=== PATIENT | male | born 1960 | race Caucasian/White ===

== ENCOUNTER 2016-09-20 07:34 | Inpatient (IN) | payer MEDICAID ==
[~2016-09-20] VITALS: Ht 170.2 cm; Wt 63.5 kg
[2016-09-20] MEDS ORDERED: SODIUM CHLORIDE FLUSH 10 ML SYR IV PRN (07:50)
[2016-09-20] MEDS ORDERED: ONDANSETRON 2 MG/ML (Z0FRAN) 2 ML VIAL IV ONE (07:50)
[2016-09-20] MEDS ORDERED: SODIUM CHLORIDE FLUSH 3 ML SYR IV PRN (07:50)
[2016-09-20] MEDS ORDERED: SODIUM CHLORIDE 250 ML IV PRN (07:50)
[2016-09-20] MEDS ORDERED: ALBUTEROL/IPRATROPIUM 3MG-0.5MG/3ML (DUONEB) NEB VIAL INH ONE (08:00)
--- NOTE | 2016-09-20 08:12 | NUR ---
This nurse called Anival at [facility]. Nurse stated no change in insulin and that pt is very brittle and goes up and down very easily. Nurse also stated that pt most likely did not have a CT when pt was at the hospital for the fall on the , but will call if she finds out otherwise.
[2016-09-20 08:20] LABS: MEAN CORPUSCULAR HGB CONC 35.4 g/dL (31.0-37.0); MEAN CORPUSCULAR VOLUME 91 FL (80-100); MEAN PLATELET VOLUME 10.2 FL (6.0-9.5); PLATELET COUNT 165 10^3uL (150-450); WHITE BLOOD COUNT 28.28 10^3uL (4.0-11.0)
[2016-09-20 08:39] LABS: MEAN CORPUSCULAR HEMOGLOBIN 32.2 PG (26.0-34.0)
[2016-09-20 09:16] LABS: ALBUMIN 3.9 g/dL (3.4-5.0); ALKALINE PHOSPHATASE 142 U/L (38-126); ANION GAP 19.3 MEQ/L (3-15); BUN/CREATININE RATIO 23 (10-20); CALCULATED IONIZED CALCIUM 3.9 mg/dL (3.8-4.6); CREATINE KINASE 29 U/L (55-170); LIPASE* 53 U/L (23-300); MAGNESIUM* 3.1 mg/dL (1.6-2.3); TOTAL PROTEIN 7.7 g/dL (6.4-8.5)
--- NOTE | 2016-09-20 09:18 | NUR ---
COYNE DRAINS 300CC IMMED & WHILE PT WAS BEING CLEANED UP & GOWNED, FOUND COYNE TO HAVE 1800 CC TOTAL IN IT BAG. DR KRISHNA NOTIFIED. CL
--- NOTE | 2016-09-20 09:19 | NUR ---
This nurse called Anival at , nurse states that pt was acting out of the norm this morning. Usually pt is quiet, but clear, aware, and forms sentences. This morning pt would be normal, then be more lethargic and unclear.
--- NOTE | 2016-09-20 09:30 | NUR ---
PT TEMP RECHK & FOUND TO BE 100.7 TYMP. PT SHAKING/CHILLING. CL
[2016-09-20 10:09] LABS: BAND NEUTROPHILS % 4 % (0-6); EOSINOPHILS % 0 % (0-4); MONOCYTES # 2.2 #; MONOCYTES % 8 % (3-11); SEGMENTED NEUTROPHILS % 81 % (51-67); TOTAL CELLS COUNTED 100
[2016-09-20 10:10] LABS: RBC MORPH NORMAL (NORMAL)
--- NOTE | 2016-09-20 10:18 | NUR ---
O2 SAT GOES TO 89% OFF AND ON AT 5L/NC. DR KRISHNA NOTIFIED & STATES TO LEAVE O2 UNLESS IT DROPS FURTHER FOR LONGER PERIOD. CL
--- NOTE | 2016-09-20 10:20 | NUR ---
PT ASLEEP & MOANS BUT DOES NOT AWAKEN TO SPEECH OR SHAKING. DR KRISHNA NOTIFIED & BLD GLUCOSE RECHK 101. CL
[2016-09-20] MEDS ORDERED: CALCIUM GLUCONATE 1,000 MG in D5W (IVPB) 50 ML IV ONE (10:35)
[2016-09-20] MEDS ORDERED: CLINDAMYCIN INJ 600 MG in SODIUM CHLORIDE 50 ML IV ONE (10:35)
--- NOTE | 2016-09-20 10:44 | NUR ---
PT AWAKE WITH EYES OPEN. NO FURTHER SHIVERING/SHAKING NOTED. CL
--- NOTE | 2016-09-20 10:50 | NUR ---
PT TEMP RECHK IS 103.[address] KRISHNA NOTIFIED. CL
[2016-09-20 10:52] LABS: BILIRUBIN,URINE Negative (Negative); COLOR,URINE Yellow; GLUCOSE, URINE (UA) Negative (Negative); LEUKOCYTE ESTERASE ,URINE 2+ (Negative); PH,URINE 5.5 (5.0 - 8.0); UROBILINOGEN,URINE 0.2 mg/dL (0.2-1.0)
--- NOTE | 2016-09-20 11:00 | NUR ---
DR KRISHNA TEXTS DR KUMARI RE PT. CL
[2016-09-20 11:10] LABS: CLARITY,URINE Slightly Cloudy
--- NOTE | 2016-09-20 11:14 | NUR ---
PT AROUSES & OPENS EYES & LOOKS AROUND, SIGHS & RETURNS TO SLEEP. CL
[2016-09-20 11:20] LABS: RBC,URINE 50-100 /HPF; URINE CENTRIFUGED VOLUME 12 mL
--- NOTE | 2016-09-20 11:21 | NUR ---
DR KRISHNA TALKS W/DR KUMARI. CL
--- NOTE | 2016-09-20 11:22 | NUR ---
DORETHA UNCLAMPEED. DR KRISHNA NOTIFIED. CL
--- NOTE | 2016-09-20 12:40 | NUR ---
DR KRISHNA WAITING ON CT REPORT. PT ASLEEP. CL
--- NOTE | 2016-09-20 13:21 | NUR ---
TEMP RECHCK IS 102.1. CL
--- NOTE | 2016-09-20 13:26 | NUR ---
PTS SISTER RETURNS PREVIOUS CALLS TO HER DPOA. TALKS WITH DR KRISHNA. CL
[2016-09-20] MEDS ORDERED: D5 NS IV 1,000 ML IV SCH (14:00)
--- NOTE | 2016-09-20 14:05 | NUR ---
DR KRISHNA TALKS W/DR KUMARI RE PT. CL
--- NOTE | 2016-09-20 14:05 | NUR ---
Betito granado in [facility] - 09/20/16 at [id number] KRISHNA TALKS W/DR KUMARI RE PT. CL
--- NOTE | 2016-09-20 14:15 | NUR ---
DORETHA EMPTIED OF 750CC AGAIN. LG AMT OF SEDIMENT CONT TO BE NOTED. CL
--- NOTE | 2016-09-20 14:20 | NUR ---
[facility] ([facility]) CALLED TO GIVE REPORT ON PT ADMIT STATUS. PH CALL TO DPOA (SISTER CARLOS ENRIQUE) & MSG LEFT TO RETURN CALL TO THIS ER. CL
[2016-09-20 15:00] VITALS: BP 102/55
--- NOTE | 2016-09-20 15:00 | NUR ---
Patient arrives to room 301 via ED cart. Unresponsive to verbal or physical stimuli. PERRLA. Respirations even and labored on 3L of 02. Vital signs upon arrival, T- 98.6, P- 98 bpm, R- 30, BP- 102/55, 02- 92% on 3L. Accucheck = 152. Patton catheter intact and draining purulent yellow urine. See admission for full assessment.
--- NOTE | 2016-09-20 15:35 | NUR ---
Dr. Johnston here to see patient.
[2016-09-20 15:54] LABS: ALBUMIN 3.4 g/dL (3.4-5.0); ANION GAP 16.6 MEQ/L (3-15); MAGNESIUM* 2.8 mg/dL (1.6-2.3); PHOSPHORUS 6.4 mg/dL (2.4-4.9)
[2016-09-20 16:00] VITALS: BP 102/55
[2016-09-20] MEDS ORDERED: ONDANSETRON 2 MG/ML (Z0FRAN) 2 ML VIAL IV PRN (16:05)
[2016-09-20] MEDS ORDERED: LEVOFLOXACIN 750 MG/150 ML IV 150 ML IV ONE (16:05)
[2016-09-20] MEDS ORDERED: SODIUM POLYSTERENE SULF SUSP 15 GM/60 ML (KAYEXALATE) BTL PR ONE (16:05)
--- NOTE | 2016-09-20 16:15 | NUR ---
MED REC COMPLETE--current med list obtained from [facility] ([facility]).
--- NOTE | 2016-09-20 16:32 | NUR ---
Kayexalate 30gm given NM. Patient remains unresponsive. Will continue to monitor.
[2016-09-20] MEDS ORDERED: NS FLUSH 10 ML PRN IV (16:35)
[2016-09-20] MEDS ORDERED: NS FLUSH 3 ML PRN IV (16:35)
[2016-09-20 17:33] VITALS: BP 108/62
[2016-09-20] MEDS: CLINDAMYCIN INJ 600 MG in SODIUM CHLORIDE 50 ML IV SCH ×2 (18:24→23:57)
--- NOTE | 2016-09-20 18:33 | NUR ---
Patient eyes open. Does not respond to verbal stimuli, however. No apparent signs of pain or distress. IV antibiotic infusing without difficulty. Telemetry reflecting NSR at times sinus tach at a rate of 98 bpm. Temp currently 101 temporally. No results from Kayexalate thus far. Will continue to monitor.
[2016-09-20 19:56] VITALS: BP 130/67
[2016-09-20] MEDS: ACETAMINOPHEN 650 MG SUPP (TYLENOL) PR PRN (20:10)
--- NOTE | 2016-09-20 20:10 | NUR ---
Tylenol 650 mg FL placed for oral temp of 101.7. Pt. opens eyes slightly; moves hands. Pt. repositioned for comfort; pillows placed appropriately. O2 at 3L via NC; Ns infusing at 100 cc/hr without difficulty; tabs attached for safety. Pt.'s room is located close to nurse's station for frequent observation. Addendum: 09/20/16 at 2013 by Emilee Smallwood RN Correction: NS is currently infusing at 125 cc/hr; not 100.
--- NOTE | 2016-09-20 21:10 | NUR ---
Accucheck of [address] Johnston. New order: give Humalog 10 units now; initiate sliding scale insulin.
[2016-09-20] MEDS ORDERED: INSULIN LISPRO 1 UNIT/0.01 ML (HUMALOG) DOSE SC ONE (21:30)
--- NOTE | 2016-09-20 21:30 | NUR ---
Humalog 10 units given per order from Dr. Johnston.
[2016-09-20] MEDS ORDERED: GLUCAGON EMERGENCY 1 MG/KIT IM PRN (21:55)
[2016-09-20] MEDS ORDERED: DEXTROSE 50% 25 GM/50 ML SYRINGE IV PRN (21:55)
[2016-09-20] MEDS ORDERED: DEXTROSE ORAL GEL (GLUTOSE 40%) 15 GM TUBE PO PRN (21:55)
--- NOTE | 2016-09-20 22:53 | NUR ---
Accucheck 133. Pt. is becoming more responsive; opens eyes; attempts to communicate. Patton to gravity; IVF infusing at 125 cc/hr; O2 at 3L via NC. Tabs attached for safety. NPO status observed.
[2016-09-20 23:45] LABS: ANION GAP 13.6 MEQ/L (3-15)
[2016-09-21] VITALS (18 sets, daily range): BP systolic 80–120; BP diastolic 38–61
[2016-09-21] MEDS: ACETAMINOPHEN 650 MG SUPP (TYLENOL) PR PRN ×2 (01:54→07:34)
--- NOTE | 2016-09-21 01:55 | NUR ---
Tylenol 650 mg LA for temp of 101.5. Pt. very warm/hot to the touch. Pt. cleaned and changed of scant bowel movement/ortiz in coloration. Pt. opens eyes; moves arms/hands; attempts to verbalize needs. NPO status remains; alonso to gravity with urine cloudy/yellow. Lower leg extremity edema noted. O2 at 3L via NC; resp varies from normal to slightly labored. Telemetry reflects sinus rhythm to sinus tach. Tabs and bed alarm on for safety.
--- NOTE | 2016-09-21 04:10 | NUR ---
O2 turned to 3.5L; SATS were staying between 88-89% with recent check at 3L. SATS now reflecting 92%. Pt. resting quietly; tabs and bed alarm on for safety.
--- NOTE | 2016-09-21 04:55 | NUR ---
Pt. changed and repositioned; incontinent stool; medium amount; ortiz/gold in coloration.
[2016-09-21] MEDS: CLINDAMYCIN INJ 600 MG in SODIUM CHLORIDE 50 ML IV SCH ×3 (05:30→17:36)
--- NOTE | 2016-09-21 06:01 | NUR ---
Accucheck is 135 this morning; sliding scale insulin not required. Telemetry reflects sinus tach to sinus rhythm. O2 remains at 3.5 L; NPO status. Bed and tabs alarm applied; pt.'s room is within close proximity to nurse's station for frequent evaluation.
[2016-09-21] MEDS: INSULIN LISPRO 1 UNIT/0.01 ML (HUMALOG) DOSE SC SCH ×4 (06:05→20:55)
[2016-09-21 06:31] LABS: MEAN CORPUSCULAR HGB CONC 34.1 g/dL (31.0-37.0); MEAN CORPUSCULAR VOLUME 94 FL (80-100); MEAN PLATELET VOLUME 10.7 FL (6.0-9.5); PLATELET COUNT 108 10^3uL (150-450); WHITE BLOOD COUNT 24.05 10^3uL (4.0-11.0)
[2016-09-21 06:39] LABS: MEAN CORPUSCULAR HEMOGLOBIN 32.1 PG (26.0-34.0)
[2016-09-21 07:02] LABS: ALBUMIN 2.9 g/dL (3.4-5.0); TOTAL PROTEIN 6.1 g/dL (6.4-8.5)
[2016-09-21 08:19] LABS: BAND NEUTROPHILS % 17 % (0-6); EOSINOPHILS % 0 % (0-4); LYMPHOCYTES # 1.2 #; MONOCYTES # 1.9 #; MONOCYTES % 8 % (3-11); SEGMENTED NEUTROPHILS % 70 % (51-67); TOTAL CELLS COUNTED 100
[2016-09-21 08:20] LABS: ANISOCYTOSIS SLIGHT; POLYCHROMASIA SLIGHT; RBC MORPH SEE REFERENCE (NORMAL); TOXIC GRANULATION/VACUOLAZATIO SLIGHT
[2016-09-21] MEDS ORDERED: NS FLUSH 3 ML DAILY IV SCH (09:00)
--- NOTE | 2016-09-21 11:50 | NUR ---
Manual blood pressure in right arm = 95/43. Dr. Johnston notified. New order received to initiate NS@100ml/hour and reassess BP. Patient remains unresponsive to verbal and physical stimuli. Will continue to monitor.
[2016-09-21] MEDS: ENOXAPARIN 80 MG/0.8 ML (LOVENOX) SYR SC SCH ×2 (12:55→20:55)
--- NOTE | 2016-09-21 12:56 | NUR ---
Blood pressure recovers to 102/53.
--- NOTE | 2016-09-21 13:25 | NUR ---
Nurse in room hanging IV medication. Dr. Johnston enters and reports patient just had 9 beat run of V-tach. Vital signs obtained, T- 98.0, P- 100, R- 22, BP- 93/52, 02-94% on 3L of . Patient awake and alert. Denies chest pain at this time. Will continue to monitor. Addendum: 09/21/16 at 1350 by Padmini Mahoney RN Patient had 9 beat run of SVT not V-tach.
--- NOTE | 2016-09-21 13:30 | NUR ---
Short run of SVT rate 150s - strip printed and taken to RN for room 301 - as entering this note another episode of SVT in 150s - last less than 1 minute
--- NOTE | 2016-09-21 13:32 | NUR ---
Lopressor 5mg IVP administered at this time. BP prior to administration = 97/50. Patient now reporting medial chest pain.
[2016-09-21] MEDS ORDERED: meTOprolol 5 MG/5 ML (LOPRESSOR) VIAL IV ONE (13:35)
--- NOTE | 2016-09-21 13:37 | NUR ---
BP following Lopressor = 104/46. Will continue to monitor closely.
[2016-09-21] MEDS ORDERED: FOSPHENYTOIN IV SCH (14:00)
[2016-09-21] MEDS ORDERED: SODIUM CHLORIDE IV SCH (14:00)
[2016-09-21] MEDS ORDERED: LORazepam 2 MG/ML (ATIVAN) 1 ML VIAL IV PRN (14:10)
[2016-09-21] MEDS ORDERED: LEVOFLOXACIN 750 MG/150 ML IV 150 ML IV SCH (16:00)
--- NOTE | 2016-09-21 16:49 | NUR ---
Dr. Johnston notified that current BP = 75/44. Orders to increase IVF to 150ml/hour. Patient awake and alert. Denies pain. Will continue to monitor.
--- NOTE | 2016-09-21 17:41 | NUR ---
BP recovers to 106/51. Dr. Johnston orders to decrease IVF rate to 125ml/hour.
--- NOTE | 2016-09-21 18:10 | NUR ---
Patient awake and alert in bed. Fidgets with oxygen, telemetry, and gown throughout day. Oxygen titrated to 1L after removing oxygen and saturation 91% on roomair. BP at this time = 102/65. IV antibiotic infusing without difficulty. Telemetry reflecting NSR. Denies chest pain or distress. Patton catheter continues to drain yellow urine with large amount of sediment. Seizure precautions in place. Will continue to monitor.
--- NOTE | 2016-09-21 19:05 | NUR ---
Called by PATRICK Gibbons that pt has 14 second run of SVT. Pt assessed; lying in bed. Oxygen replaced. Vital signs as follows: BP 98/58, HR 97, Temp 99.4, o2 sat 89% on 1L. Increased oxygen up to 2L; pt recovers to 94%. Dr Johnston notified.
--- NOTE | 2016-09-21 19:12 | NUR ---
Turned pt's fluids down to 100 ml/hr per Dr Johnston order.
--- NOTE | 2016-09-21 21:13 | NUR ---
Edwige RN, notifies this nurse that pt is back in SVT. PT immediately assessed. BP 85/51. Ice applied to forehead and neck. Dr Johnston on floor; states will transfer pt to ICU.
--- NOTE | 2016-09-21 21:25 | NUR ---
PATIENT ARRIVED TO ROOM 343 VIA BED, TRANSFERRED TO BED IN ROOM VIA SLIDE BOARD AND ASSIST OF 4. RECEIVED BEDSIDE REPORT FROM PATRICK ANN. BEDSIDE MONITORING INITIATED AND ASSESSMENT COMPLETED. DR. KUMARI AT BEDSIDE, ORDERED RECEIVED.
--- NOTE | 2016-09-21 21:30 | NUR ---
Pt transferred to ICU. PATRICK Gibbons is given report and accepts care of pt.
[2016-09-21] MEDS ORDERED: AMIODARONE FOR BOLUS 150 MG in D5W (IVPB) 100 ML IV ONE (21:35)
[2016-09-21] MEDS ORDERED: AMIODARONE FOR BOLUS 900 MG in D5W IV (EXCEL) 482 ML IV SCH (21:35)
[2016-09-21] MEDS ORDERED: AMIODARONE 150 MG/3 ML (CORDARONE) AMP IV ONE (21:40)
[2016-09-21] MEDS ORDERED: DEXTROSE ORAL GEL (GLUTOSE 40%) 15 GM TUBE PO PRN (21:40)
[2016-09-21] MEDS ORDERED: D5W IV ONE ×2 (21:41→21:42)
[2016-09-21] MEDS ORDERED: DEXTROSE 50% 25 GM/50 ML SYRINGE IV PRN (21:55)
[2016-09-21] MEDS ORDERED: GLUCAGON EMERGENCY 1 MG/KIT IM PRN (21:55)
[2016-09-21] MEDS ORDERED: ONDANSETRON 2 MG/ML (Z0FRAN) 2 ML VIAL IV PRN (22:05)
[2016-09-21] MEDS ORDERED: LORazepam 2 MG/ML (ATIVAN) 1 ML VIAL IV ONE (23:50)
[2016-09-21] MEDS ORDERED: SODIUM CHLORIDE FLUSH 10 ML ONE (23:51)
[2016-09-22] VITALS (16 sets, daily range): BP systolic 97–147; BP diastolic 54–82
[2016-09-22] MEDS ORDERED: ACETAMINOPHEN 650 MG SUPP (TYLENOL) PR PRN (00:05)
[2016-09-22] MEDS ORDERED: CLINDAMYCIN 600 MG/4ML (CLEOCIN) VIAL ONE (01:21)
[2016-09-22] MEDS ORDERED: SODIUM CHLORIDE 100 ML IV ONE (01:21)
[2016-09-22] MEDS ORDERED: NS 50 ML (IVPB) BAG IV PRN (01:25)
[2016-09-22] MEDS: CLINDAMYCIN INJ 600 MG in SODIUM CHLORIDE 50 ML IV SCH ×5 (01:26→23:52)
[2016-09-22 06:00] LABS: BASOPHILS % (AUTO) 0 % (0-2); EOSINOPHILS # (AUTO) 0.1 10^3uL; EOSINOPHILS % (AUTO) 1 % (0-4); MEAN CORPUSCULAR HGB CONC 33.1 g/dL (31.0-37.0); MEAN CORPUSCULAR VOLUME 96 FL (80-100); MEAN PLATELET VOLUME 10.6 FL (6.0-9.5); MONOCYTES % (AUTO) 8 % (3-11); NEUTROPHILS # (AUTO) 11.1 X10^3; NEUTROPHILS % (AUTO) 84 % (51-67); PLATELET COUNT 122 10^3uL (150-450); WHITE BLOOD COUNT 13.16 10^3uL (4.0-11.0)
[2016-09-22 06:11] LABS: ALBUMIN 2.8 g/dL (3.4-5.0); ANION GAP 16.6 MEQ/L (3-15); MAGNESIUM* 2.2 mg/dL (1.6-2.3); PHOSPHORUS 2.6 mg/dL (2.4-4.9)
[2016-09-22 06:13] LABS: MEAN CORPUSCULAR HEMOGLOBIN 31.8 PG (26.0-34.0)
--- NOTE | 2016-09-22 07:48 | NUR ---
NUTRITION ASSESSMENT Level 1 Patient: Harsh Machado Age/Sex: 56/M Date Screened: 09-22-16 Weight: 142.1#/64.6 kg Height: 67 inches Primary Diagnosis: SIRS/sepsis Diet Order: NPO Relevant labs: sodium 154, potassium 3.3, glucose 250 Food allergies: N Nutrition Assessment Criteria Age over 80: N Body Mass Index (BMI) under 19: N Admission Screening Indicates Risk? 3 points Moderate/High Risk Diagnosis: 3 points TPN or PPN: N NPO or clear liquid diet: Yes Serum Glucose <70 or >180: 3 points Hgb A1c >6.7: N/A Total: 9 points Risk Screen: __ Patient at low nutritional risk based on available data; reevaluate in 5-7 days __ Patient at moderate nutritional risk based on available data; reevaluate in 3-5 days _X_ Patient at high nutritional risk; complete Nutrition Assessment within 48 hours of admission.
[2016-09-22] MEDS: INSULIN LISPRO 1 UNIT/0.01 ML (HUMALOG) DOSE SC SCH ×4 (08:22→21:00)
[2016-09-22] MEDS ORDERED: traZODone 50 MG (DESYREL) TABLET PO PRN (08:35)
[2016-09-22] MEDS ORDERED: ALBUTEROL/IPRATROPIUM 3MG-0.5MG/3ML (DUONEB) NEB VIAL INH PRN (08:55)
[2016-09-22] MEDS ORDERED: PANTOPRAZOLE 40 MG (PROTONIX) TAB PO SCH (09:00)
[2016-09-22] MEDS ORDERED: ALBUTEROL HFA (VENTOLIN HFA) COMMON CANNISTER IH SCH ×2 (09:00)
[2016-09-22] MEDS ORDERED: ENOXAPARIN 80 MG/0.8 ML (LOVENOX) SYR SC SCH ×2 (09:00→21:00)
[2016-09-22] MEDS ORDERED: SODIUM CHLORIDE FLUSH 3 ML SYR IV SCH (09:00)
[2016-09-22] MEDS ORDERED: RIVAROXABAN 10 MG (XARELTO) TABLET PO SCH (09:00)
[2016-09-22] MEDS ORDERED: POLYETHYLENE GLYCOL 17 GM (MIRALAX) PACKET PO SCH (09:00)
[2016-09-22] MEDS ORDERED: THIAMINE 100 MG (VITAMIN B-1) TAB PO SCH (09:00)
[2016-09-22] MEDS ORDERED: POTASSIUM CHLORIDE ER 10 MEQ CAPSULE PO SCH (09:00)
[2016-09-22] MEDS ORDERED: SODIUM CHLORIDE IV SCH ×2 (09:00)
[2016-09-22] MEDS ORDERED: FINASTERIDE (PROSCAR) 5 MG TAB PO SCH (09:00)
[2016-09-22] MEDS ORDERED: FOSPHENYTOIN IV SCH ×2 (09:00)
[2016-09-22] MEDS ORDERED: lisINopril 20 MG (PRINIVIL) TABLET PO SCH (09:00)
[2016-09-22] MEDS ORDERED: TAMSULOSIN 0.4 MG (FLOMAX) CAP PO SCH (09:00)
[2016-09-22] MEDS ORDERED: MULTIVITAMIN W/MINERALS (THERAGRAN M) TABLET PO SCH (09:18)
[2016-09-22] MEDS: DOCUSATE SODIUM 100 MG (COLACE) CAP PO SCH ×2 (09:32→20:07)
[2016-09-22] MEDS: MAGNESIUM HYDROXIDE 80MG/ML (MILK OF MAGNESIA) 30 ML UDC PO SCH ×3 (09:32→17:00)
--- NOTE | 2016-09-22 14:07 | NUR ---
NUTRITION ASSESSMENT Level II Patient: Harsh Machado Age/Sex: 56/M Date Assessed: 09-22-16 ASSESSMENT Pertinent History: Patient admitted with SIRS/sepsis and screened at high nutritional risk secondary to diagnosis and poor appetite/intake with aspiration pneumonia. 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 PMHx includes diabetes, HTN, GERD, BPH, COPD, epilepsy, CKD and CVA with left sided weakness. No weight history is available. Per RN report, pt. has mild skin breakdown on coccyx. Meds/Nutrition: Levemir, MVI, Protonix, Thiamine, KCl, Humalog Weight: 142.1#/64.6 kg Height: 67 inches Body Mass Index (BMI): 22.3 [place] Body Weight : 148#/67.2 kg % IBW: 96% GASTROINTESTINAL Appetite: good, taking 75% FL Diet Order: mechanical soft, NT liquids, medium diabetic Unintentional loss of >10 lbs. in 3 months: N Difficult to chew/swallow: Yes Diabetes: Yes Relevant Labs: sodium 154, potassium 3.3, glucose 250 Calculations for Nutritional Assessment Estimated calorie needs: 25-28 kcals/kg = 1,600-1,800 kcals Estimated protein needs: 1.0-1.3 g/kg = 64-83 g./day DIAGNOSIS 1. Nutrition Diagnosis: Inadequate intake related to illness and dysphagia as evidenced by aspiration pneumonia and speech therapist reports. NUTRITIONAL INTERVENTION Goal: Patient will receive adequate nutrition within an appropriate texture for his safety. Plan: Will provide mechanical soft diet with nectar-thick liquids and medium diabetic diet as ordered, and monitor intake for adequacy. Plan is to DC back to [facility] when clinically stable. MONITORING & EVALUATION _X_ Monitor patients menu selections _X_ Monitor patients food intake per nursing notes __ Monitor NPO/clear liquid days __ Monitor lab values __ Monitor I&O _X_ Other--monitor swallow ability and skin breakdown
[2016-09-22] MEDS ORDERED: LORazepam 2 MG/ML (ATIVAN) 1 ML VIAL IV PRN (14:10)
--- NOTE | 2016-09-22 14:17 | NUR ---
MULTIDISCIPLINARY MTG/DR. HERMAN: Pt. admitted for altered mental status, Sepsis and pneumonia with concern for aspiration. Pt. had SVT last night and was started on amiodarone. This will finish today. Pt. is breathing okay and is on room air. Pt. receiving albuterol BID. Pt. on levofloxacin and clindamycin. Pt. started on a bowel regimen for constipation. ST evaluated Pt and recommends mechanical soft foods and nectar thick liquids. Pt. will be restarted on oral medications today. Pt. is a resident of [facility] and stated Pt. would like to get back to [place] and is waiting for a room to become available at [facility]. [facility] is able to take Pt. back if his room is not available at time of discharge.
--- NOTE | 2016-09-22 14:22 | NUR ---
Patient is found this AM with Amiodarone drip infusing into RFA and Cleocin into Lhand. The patient is drowsy but opens eyes to voice. Appearance is somewhat unkempt and skin is dry and warm. Healed abrasion above left eye. No evidence of pain or distress for Harsh this AM respirations are even and unlabored and vital signs are WNL. Monitor shows sinus rhythm with a heart rate in the 80s. Dr. Geiger in to see Harsh this AM and diet advanced to Full Liquid and PO medications to begin. Harsh coughs intermittently but is able to swallow and toleration medications by mouth. Hygiene completed this AM and the patient is made comfortable in bed. Hair shampooed and skin barrier applied to reddened coccyx area. Harsh cooperates with all cares and is appropriate with interactions. After lunch speech therapy is in to see the patient and diet is advanced to mechanical soft. Currently Harsh is resting in bed under the covers with eyes closed and appears to be in no distress. Will continue to monitor and turn Q2HR
--- NOTE | 2016-09-22 15:33 | NUR ---
US in the room at this time.
[2016-09-22] MEDS: SODIUM CHLORIDE FLUSH 10 ML SYR IV PRN ×2 (15:55→23:52)
[2016-09-22] MEDS ORDERED: LEVOFLOXACIN 750 MG/150 ML IV 150 ML IV SCH (16:00)
[2016-09-22] MEDS ORDERED: LEVOFLOXACIN 500 MG/100 ML IV 100 ML IV SCH (16:00)
--- NOTE | 2016-09-22 16:30 | NUR ---
Patient found with monitors off, no clothes or blankets on and and on to his left side. IV infiltrated. Linens and pull ups changed at this time. Patient is repositioned for comfort. IV in RFA discontinued
[2016-09-22] MEDS ORDERED: SODIUM CHLORIDE FLUSH 3 ML SYR IV PRN (16:35)
--- NOTE | 2016-09-22 17:00 | NUR ---
20 gauge IV started in RFA at this time and amiodarone drip resumes in this site. Previous IV site discontinued due to infiltration
[2016-09-22 17:20] LABS: ALBUMIN 2.7 g/dL (3.4-5.0); ANION GAP 14.6 MEQ/L (3-15)
[2016-09-22] MEDS ORDERED: MAGNESIUM HYDROXIDE 80MG/ML (MILK OF MAGNESIA) 30 ML UDC PO PRN (18:45)
--- NOTE | 2016-09-22 19:00 | NUR ---
Upon taking over care, patient sitting upright in bed, leaning to left with full liquid dinner tray in front of him. Intake 50%. Coughing up thick phlegm, O2 sats 94% on room air. SR 80's.
--- NOTE | 2016-09-22 19:05 | NUR ---
report given to Hannah NGUYEN and care relinquished
--- NOTE | 2016-09-22 20:53 | NUR ---
Oral cares performed, incontinent of BM, cares performed, patient rubbing legs, states "yes" when asked if they hurt. Prn order for Tylenol supp and patient states "no". New order for Tylenol prn po received. Liquids thickened per diet order.
[2016-09-22] MEDS ORDERED: PHENYTOIN ER 100 MG (DILANTIN) CAPSULE PO SCH (21:00)
[2016-09-22] MEDS ORDERED: INSULIN DETEMIR 1 UNIT/0.01 ML (LEVEMIR) DOSE SC SCH (21:00)
[2016-09-22] MEDS ORDERED: ATENOLOL 50 MG (TENORMIN) TAB PO SCH (21:00)
[2016-09-22] MEDS ORDERED: SIMvastatin 40 MG (ZOCOR) TAB PO SCH (21:00)
[2016-09-22] MEDS ORDERED: ACETAMINOPHEN 325 MG TAB (TYLENOL) PO PRN ×2 (21:15→21:20)
--- NOTE | 2016-09-22 21:20 | NUR ---
Prn Trazodone administered per order.
--- NOTE | 2016-09-22 21:28 | NUR ---
Patient continues to fidget in bed, when asked if he still hurts he replied "yes" prn Tylenol administered with bite of sf jello and thickened water. Sitting upright in bed drinking thickened water, with no coughing or choking.
[2016-09-22] MEDS ORDERED: INSULIN LISPRO 1 UNIT/0.01 ML (HUMALOG) DOSE SC SCH (22:10)
[2016-09-23] VITALS: BP 128/61
--- NOTE | 2016-09-23 00:07 | NUR ---
Resting off and on in bed, repeatedly turns to left side of bed and reaches over as looking for something, given thickened water while sitting upright, does not cough with each drink but after, coughs up thick clear phlegm. Continues to pull and tear at tele wires, and brief. reminded where he is and what wires for. repositioned to side with hob down to 15 degree. Continue to monitor
[2016-09-23] MEDS: ALBUTEROL/IPRATROPIUM 3MG-0.5MG/3ML (DUONEB) NEB VIAL INH SCH ×3 (02:35→22:47)
[2016-09-23 04:00] VITALS: BP 111/58
[2016-09-23] MEDS: CLINDAMYCIN INJ 600 MG in SODIUM CHLORIDE 50 ML IV SCH (05:15)
--- NOTE | 2016-09-23 05:35 | NUR ---
Has been awake over past several hours, fidgeting in bed with wires, ja brief, kleenex, and hands in air. Alert and oriented to person, place and situation. Voice is a whisper, respirations even non labored on room air, when given thickened water, states "this tastes like shit". Continues to drink nectar thick water from cup until all is gone from cup, intermittent coughing and uses Kleenex to spit phlegm into. Patton to dd with odorous, dark yellow with mucous output. Cleocin infusing into left forearm @ 100. Continue to monitor.
[2016-09-23 06:09] LABS: BASOPHILS % (AUTO) 0 % (0-2); EOSINOPHILS # (AUTO) 0.3 10^3uL; EOSINOPHILS % (AUTO) 2 % (0-4); LYMPHOCYTES # (AUTO) 1.6 X10^3; MEAN CORPUSCULAR HGB CONC 33.9 g/dL (31.0-37.0); MEAN CORPUSCULAR VOLUME 94 FL (80-100); MEAN PLATELET VOLUME 10.5 FL (6.0-9.5); MONOCYTES # (AUTO) 0.8 X10^3; MONOCYTES % (AUTO) 7 % (3-11); NEUTROPHILS # (AUTO) 9.6 X10^3; NEUTROPHILS % (AUTO) 77 % (51-67); PLATELET COUNT 134 10^3uL (150-450); WHITE BLOOD COUNT 12.33 10^3uL (4.0-11.0)
[2016-09-23 06:13] LABS: MEAN CORPUSCULAR HEMOGLOBIN 31.8 PG (26.0-34.0)
[2016-09-23 06:36] LABS: ALBUMIN 2.8 g/dL (3.4-5.0); ANION GAP 12.8 MEQ/L (3-15); PHOSPHORUS 1.5 mg/dL (2.4-4.9)
[2016-09-23] MEDS: INSULIN LISPRO 1 UNIT/0.01 ML (HUMALOG) DOSE SC SCH ×7 (06:44→21:08)
--- NOTE | 2016-09-23 07:00 | NUR ---
Report received from Hannah NGUYEN and care assumed.
[2016-09-23 07:40] VITALS: BP 128/89
--- NOTE | 2016-09-23 08:00 | NUR ---
Assessments completed and breakfast tray taken into pt. Pt is not tolerating the thickened liquids very well. Ate poorly for breakfast. Pt has difficulty with swallowing liquids even thickened without coughing. Pt talks only in a whisper. Leans to the left due to CVA. Monitor showing SR in the 80's. Will continue to monitor closely.
[2016-09-23] MEDS ORDERED: DEXTROSE ORAL GEL (GLUTOSE 40%) 15 GM TUBE PO PRN (08:10)
[2016-09-23] MEDS ORDERED: DEXTROSE 50% 25 GM/50 ML SYRINGE IV PRN (08:24)
[2016-09-23] MEDS ORDERED: GLUCAGON EMERGENCY 1 MG/KIT IM PRN (08:26)
[2016-09-23] MEDS ORDERED: ONDANSETRON 2 MG/ML (Z0FRAN) 2 ML VIAL IV PRN (08:27)
[2016-09-23] MEDS ORDERED: NS 50 ML (IVPB) BAG IV PRN (08:29)
[2016-09-23] MEDS ORDERED: SODIUM CHLORIDE FLUSH 10 ML SYR IV PRN (08:29)
[2016-09-23] MEDS ORDERED: POTASSIUM PHOSPHATE 21 MM in SODIUM CHLORIDE 250 ML IV ONE (08:30)
[2016-09-23] MEDS ORDERED: SODIUM CHLORIDE FLUSH 3 ML SYR IV PRN (08:30)
[2016-09-23] MEDS ORDERED: ACETAMINOPHEN 325 MG TAB (TYLENOL) PO PRN ×2 (08:32→09:20)
[2016-09-23] MEDS ORDERED: LORazepam 2 MG/ML (ATIVAN) 1 ML VIAL IV PRN (08:33)
[2016-09-23] MEDS: PANTOPRAZOLE 40 MG (PROTONIX) TAB PO SCH (08:43)
[2016-09-23] MEDS: FINASTERIDE (PROSCAR) 5 MG TAB PO SCH (08:43)
[2016-09-23] MEDS: lisINopril 20 MG (PRINIVIL) TABLET PO SCH (08:44)
[2016-09-23] MEDS: RIVAROXABAN 10 MG (XARELTO) TABLET PO SCH (08:44)
[2016-09-23] MEDS: POTASSIUM CHLORIDE ER 10 MEQ CAPSULE PO SCH (08:45)
[2016-09-23] MEDS: PHENYTOIN ER 100 MG (DILANTIN) CAPSULE PO SCH ×2 (08:45→21:07)
[2016-09-23] MEDS: MULTIVITAMIN W/MINERALS (THERAGRAN M) TABLET PO SCH (08:46)
[2016-09-23] MEDS: DOCUSATE SODIUM 100 MG (COLACE) CAP PO SCH ×2 (08:46→21:07)
[2016-09-23] MEDS: THIAMINE 100 MG (VITAMIN B-1) TAB PO SCH (08:46)
[2016-09-23] MEDS: POLYETHYLENE GLYCOL 17 GM (MIRALAX) PACKET PO SCH (08:48)
[2016-09-23] MEDS: SODIUM CHLORIDE FLUSH 3 ML SYR IV SCH (08:48)
[2016-09-23] MEDS ORDERED: ALBUTEROL HFA (VENTOLIN HFA) COMMON CANNISTER IH SCH (09:00)
[2016-09-23] MEDS ORDERED: MAGNESIUM HYDROXIDE 80MG/ML (MILK OF MAGNESIA) 30 ML UDC PO PRN (09:00)
[2016-09-23] MEDS ORDERED: RIVAROXABAN 10 MG (XARELTO) TABLET PO SCH (09:00)
--- NOTE | 2016-09-23 09:20 | NUR ---
Contacted Pt. insurance company [employer] to inquire about Pt. having a skilled benefit. SW was informed that Pt. does not have a skilled or swingbed benefit.
--- NOTE | 2016-09-23 09:40 | NUR ---
Pt transferred to med-surg per shower chair, after shower pt will be transferred to room 312. Pt is alert but confused at times. Prior to transfer, alonso catheter was dcd. Report was given to Eva NGUYEN and care relinquished.
--- NOTE | 2016-09-23 09:40 | NUR ---
Patient arrives to room 312 via shower chair. Alert and oriented to self only. Denies pain or distress. IV in left forearm with potassium phosphate infusing. IV in right forearm infiltrated with moderate redness noted at insertion site. Discontinued with catheter intact. HR RRR. Telemetry reflecting NSR at a rate of 74 bpm. Lung sounds CTAB. Trace edema noted to BLE. Patient updated on plan of care for shift and oriented to room. TABS and yellow gown intact for safety and high fall risk. Will continue to monitor.
[2016-09-23] MEDS: TAMSULOSIN 0.4 MG (FLOMAX) CAP PO SCH (10:10)
[2016-09-23] MEDS ORDERED: ALBUTEROL/IPRATROPIUM 3MG-0.5MG/3ML (DUONEB) NEB VIAL INH SCH (11:00)
[2016-09-23 11:25] VITALS: BP 132/64
[2016-09-23] MEDS: CLINDAMYCIN 150 MG (CLEOCIN) CAP PO SCH ×2 (13:09→22:16)
[2016-09-23 15:37] VITALS: BP 117/69
--- NOTE | 2016-09-23 15:52 | NUR ---
Patient has not voided since Patton catheter removed. Bladder scan reveals [address] Geiger notified and orders to straight cath now and to bladders scan QID and straight cath if greater than 250ml. Straight cath performed at this time and 150 ml drained from bladder. Will continue to monitor.
[2016-09-23] MEDS: LEVOFLOXACIN 750 MG TAB (LEVAQUIN) PO SCH (16:01)
--- NOTE | 2016-09-23 18:32 | NUR ---
Patient sitting up in bed feeding self supper. Denies pain. Remains alert during day shift. Afebrile. Respirations even and non-labored on roomair. Has not voided since straight cath. Will continue to monitor.
[2016-09-23 19:50] VITALS: BP 118/68
[2016-09-23] MEDS ORDERED: traZODone 50 MG (DESYREL) TABLET PO PRN (21:00)
[2016-09-23] MEDS: INSULIN DETEMIR 1 UNIT/0.01 ML (LEVEMIR) DOSE SC SCH (21:07)
[2016-09-23] MEDS: ATENOLOL 50 MG (TENORMIN) TAB PO SCH (21:07)
[2016-09-23] MEDS: SIMvastatin 40 MG (ZOCOR) TAB PO SCH (21:07)
--- NOTE | 2016-09-23 22:45 | NUR ---
Bladder scan performed, 670mL showed on scan. Straight cath performed, 600mL drained from bladder. Patient tolerates well. No needs at this time.
--- NOTE | 2016-09-23 22:49 | NUR ---
Pt found lying in bed, SPO2 98, HR 74, RR 18, Pt has a loose NPC with coarse rhonchi in bilateral upper lobes before and after Duoneb via SVN/MASK. Pt does not talk or answer questions during my visit.
[2016-09-24 00:13] VITALS: BP 124/69
--- NOTE | 2016-09-24 04:27 | NUR ---
Bladder scan = 600mL. Straight cath performed, 550mL drained from bladder. Patient tolerates well. No needs at this time. Will continue to monitor.
[2016-09-24 04:44] VITALS: BP 141/78
[2016-09-24] MEDS: CLINDAMYCIN 150 MG (CLEOCIN) CAP PO SCH (06:00)
[2016-09-24] MEDS: PANTOPRAZOLE 40 MG (PROTONIX) TAB PO SCH (06:32)
--- NOTE | 2016-09-24 06:33 | NUR ---
Patient rests in bed throughout night, turned frequently during night. Coughs on nectar thickened water that was given. Patient refuses AM Cleocin and AM Protonix, states "You take it" and "I don't want it now." Pushes cup away when offered in applesauce. No further needs at this time.
[2016-09-24] MEDS: INSULIN LISPRO 1 UNIT/0.01 ML (HUMALOG) DOSE SC SCH ×8 (07:09→21:00)
[2016-09-24 08:00] VITALS: BP 134/70
[2016-09-24] MEDS: POLYETHYLENE GLYCOL 17 GM (MIRALAX) PACKET PO SCH (08:24)
[2016-09-24] MEDS: SODIUM CHLORIDE FLUSH 3 ML SYR IV SCH (08:27)
[2016-09-24] MEDS: ALBUTEROL/IPRATROPIUM 3MG-0.5MG/3ML (DUONEB) NEB VIAL INH SCH ×2 (08:54→19:55)
--- NOTE | 2016-09-24 08:57 | NUR ---
Pt is sitting up in bed, appears to be sleepy, tolerated tx well. On room air- SPO2 98%
[2016-09-24] MEDS: TAMSULOSIN 0.4 MG (FLOMAX) CAP PO SCH ×2 (10:00→11:28)
[2016-09-24] MEDS: MULTIVITAMIN W/MINERALS (THERAGRAN M) TABLET PO SCH (10:05)
[2016-09-24] MEDS: DOCUSATE SODIUM 100 MG (COLACE) CAP PO SCH ×3 (10:06→22:40)
[2016-09-24] MEDS: PHENYTOIN ER 100 MG (DILANTIN) CAPSULE PO SCH ×3 (10:06→22:40)
[2016-09-24] MEDS: lisINopril 20 MG (PRINIVIL) TABLET PO SCH ×2 (10:06→11:29)
[2016-09-24] MEDS: THIAMINE 100 MG (VITAMIN B-1) TAB PO SCH (10:06)
[2016-09-24] MEDS: FINASTERIDE (PROSCAR) 5 MG TAB PO SCH ×2 (10:06→11:29)
[2016-09-24] MEDS: RIVAROXABAN 10 MG (XARELTO) TABLET PO SCH ×2 (10:06→11:29)
[2016-09-24] MEDS: POTASSIUM CHLORIDE ER 10 MEQ CAPSULE PO SCH ×2 (10:06→11:29)
--- NOTE | 2016-09-24 10:07 | NUR ---
Pt refused AM meds- This nurse tried 4 different times using different methods to get patient to take medications. Dr. Geiger notified- He gave VORB to try giving meds with thin water. Pt still refused to even try medications.
--- NOTE | 2016-09-24 10:54 | NUR ---
1000 bladder scan= 610ml. Straight cath as ordered= 550ml clear yellow urine. Post cath bladder scan= 128ml
[2016-09-24 11:31] LABS: ALBUMIN 2.8 g/dL (3.4-5.0); ANION GAP 12.6 MEQ/L (3-15); PHOSPHORUS 2.9 mg/dL (2.4-4.9)
[2016-09-24 11:43] VITALS: BP 154/86
--- NOTE | 2016-09-24 11:57 | NUR ---
Dr. Geiger talked to patient regarding importance of taking medications- Pt agreed to take them- Crushed meds that are ok to be crushed with whole pills in applesauce. Taken without difficulty.
--- NOTE | 2016-09-24 13:16 | NUR ---
Pt to Rad for CT via cart.
[2016-09-24] MEDS: CLINDAMYCIN INJ 600 MG in SODIUM CHLORIDE 50 ML IV SCH ×2 (13:44→21:58)
[2016-09-24] MEDS ORDERED: CLINDAMYCIN 600 MG/4ML (CLEOCIN) VIAL IM SCH (14:00)
[2016-09-24] MEDS: LEVOFLOXACIN 750 MG TAB (LEVAQUIN) PO SCH (15:58)
[2016-09-24 16:00] VITALS: BP 92/60
--- NOTE | 2016-09-24 16:35 | NUR ---
1600 bladder scan= 710ml, Pt denies urge to void. Dr. Geiger notified- TORB for Alonso. 16F alonso placed at this time via sterile technique. 10ml saline into balloon. Immediately 700ml clear, yellow urine drained into collection bag. Pt tolerated without c/o. Securement device placed to Left anterior thigh
[2016-09-24 16:47] LABS: BILIRUBIN,URINE Negative (Negative); COLOR,URINE Yellow; GLUCOSE, URINE (UA) 1+ (Negative); LEUKOCYTE ESTERASE, URINE Trace (Negative); PH,URINE 7.5 (5.0 - 8.0)
[2016-09-24 16:50] LABS: CLARITY,URINE Slightly Cloudy
[2016-09-24 16:53] LABS: URINE CENTRIFUGED VOLUME 12 mL
--- NOTE | 2016-09-24 18:17 | NUR ---
Pt sitting up in bed, eating supper tray- feeding self. Tabs alarm in place, bed alarm turned on. Pooja santana DD. Remains on RA. Denies needs at this time.
--- NOTE | 2016-09-24 19:59 | NUR ---
Pt found lying in bed on RA, SPO2 95%, HR 80, RR 15 and non labored with clear BS before and after Duoneb via SVN/MASK.
[2016-09-24 20:51] VITALS: BP 136/72
--- NOTE | 2016-09-24 22:00 | NUR ---
Pt rests in bed. Very soft spoken and hard to understand. Pt refuses to take HS medications. States "she didn't authorize it". Unclear who "she" is. Pt's sister called for update, spoke with this nurse. States to tell him that his sister insists that he takes his meds. Pt continues to refused PO meds. SL intact. Close to nurse's station for frequent monitoring. Pt denies needs.
[2016-09-24] MEDS: INSULIN DETEMIR 1 UNIT/0.01 ML (LEVEMIR) DOSE SC SCH (22:04)
[2016-09-24] MEDS: ATENOLOL 50 MG (TENORMIN) TAB PO SCH (22:40)
[2016-09-24] MEDS: SIMvastatin 40 MG (ZOCOR) TAB PO SCH (22:41)
[2016-09-25 00:28] VITALS: BP 142/75
[2016-09-25] MEDS: INSULIN LISPRO 1 UNIT/0.01 ML (HUMALOG) DOSE SC SCH ×7 (05:38→20:42)
[2016-09-25 05:49] VITALS: BP 114/68
[2016-09-25] MEDS: CLINDAMYCIN INJ 600 MG in SODIUM CHLORIDE 50 ML IV SCH ×3 (06:12→21:21)
[2016-09-25] MEDS: PANTOPRAZOLE 40 MG (PROTONIX) TAB PO SCH (06:18)
--- NOTE | 2016-09-25 06:18 | NUR ---
Pt refused all PO meds this shift. States "I ain't taking shit for you if I don't know what it is", although this nurse explained medication names and indications to patient prior to administration. Explained medications again and pt continued to refuse. Pt pulled telemetry leads off multiple times in the shift, dug in his dirty BM-filled briefs, and did not sleep much. Bed alarm and tabs set. Close to nurse's station for frequent monitoring. Will continue to monitor.
[2016-09-25 06:35] LABS: BASOPHILS % (AUTO) 0 % (0-2); EOSINOPHILS # (AUTO) 0.2 10^3uL; EOSINOPHILS % (AUTO) 2 % (0-4); LYMPHOCYTES # (AUTO) 1.6 X10^3; MEAN CORPUSCULAR HGB CONC 34.2 g/dL (31.0-37.0); MEAN CORPUSCULAR VOLUME 93 FL (80-100); MEAN PLATELET VOLUME 11.1 FL (6.0-9.5); MONOCYTES # (AUTO) 0.7 X10^3; MONOCYTES % (AUTO) 6 % (3-11); NEUTROPHILS # (AUTO) 9.7 X10^3; NEUTROPHILS % (AUTO) 79 % (51-67); PLATELET COUNT 139 10^3uL (150-450); WHITE BLOOD COUNT 12.21 10^3uL (4.0-11.0)
[2016-09-25 06:37] LABS: MEAN CORPUSCULAR HEMOGLOBIN 31.6 PG (26.0-34.0)
--- NOTE | 2016-09-25 07:05 | NUR ---
RFA red - turns self to L side - IV antibiotic infused - line flushed with NS - to SL
[2016-09-25 07:11] LABS: ALBUMIN 2.8 g/dL (3.4-5.0); ANION GAP 11.3 MEQ/L (3-15); PHOSPHORUS 3.4 mg/dL (2.4-4.9)
[2016-09-25] MEDS: SODIUM CHLORIDE FLUSH 3 ML SYR IV SCH (07:28)
[2016-09-25 07:44] VITALS: BP 116/54
[2016-09-25] MEDS: MULTIVITAMIN W/MINERALS (THERAGRAN M) TABLET PO SCH (08:00)
[2016-09-25] MEDS: POTASSIUM CHLORIDE ER 10 MEQ CAPSULE PO SCH (09:00)
[2016-09-25] MEDS: THIAMINE 100 MG (VITAMIN B-1) TAB PO SCH (09:00)
[2016-09-25] MEDS: lisINopril 20 MG (PRINIVIL) TABLET PO SCH (09:00)
[2016-09-25] MEDS: PHENYTOIN ER 100 MG (DILANTIN) CAPSULE PO SCH ×2 (09:00→21:00)
[2016-09-25] MEDS: RIVAROXABAN 10 MG (XARELTO) TABLET PO SCH (09:00)
[2016-09-25] MEDS: POLYETHYLENE GLYCOL 17 GM (MIRALAX) PACKET PO SCH (09:00)
[2016-09-25] MEDS: DOCUSATE SODIUM 100 MG (COLACE) CAP PO SCH ×2 (09:00→21:00)
[2016-09-25] MEDS: FINASTERIDE (PROSCAR) 5 MG TAB PO SCH (09:00)
[2016-09-25] MEDS: ALBUTEROL/IPRATROPIUM 3MG-0.5MG/3ML (DUONEB) NEB VIAL INH SCH ×2 (09:06→19:59)
--- NOTE | 2016-09-25 09:30 | NUR ---
"Leave me alone" - refused po meds
[2016-09-25] MEDS: TAMSULOSIN 0.4 MG (FLOMAX) CAP PO SCH (10:00)
[2016-09-25 12:00] VITALS: BP 141/78
[2016-09-25 15:41] VITALS: BP 135/66
[2016-09-25] MEDS: LEVOFLOXACIN 750 MG TAB (LEVAQUIN) PO SCH (16:00)
--- NOTE | 2016-09-25 17:09 | NUR ---
Pt refused med, pushed this nurses hand away. Offered water if he would take the po med, again hand was pushed away. Pt is pulling at telemetry leads, had to reapply, told pt that it was important to leave them on so we can monitor his heart.
--- NOTE | 2016-09-25 20:03 | NUR ---
Pt found lying in bed on RA, SPO2 100%, HR 84, RR 14 and non labored. BS have diminished rhonchi in bilateral upper lobes, clear and diminished bilat lower lobes before and after Tx. Pt does not cough when I request he try.
--- NOTE | 2016-09-25 20:08 | NUR ---
Pt coughed spontaneously, BS cleared slightly in upper lobes
[2016-09-25 20:15] VITALS: BP 140/67
[2016-09-25] MEDS: SIMvastatin 40 MG (ZOCOR) TAB PO SCH (21:00)
[2016-09-25] MEDS: ATENOLOL 50 MG (TENORMIN) TAB PO SCH (21:00)
[2016-09-25] MEDS: INSULIN DETEMIR 1 UNIT/0.01 ML (LEVEMIR) DOSE SC SCH (21:29)
[2016-09-26 00:07] VITALS: BP 119/65
[2016-09-26 04:25] VITALS: BP 160/86
[2016-09-26] MEDS: PANTOPRAZOLE 40 MG (PROTONIX) TAB PO SCH (06:08)
[2016-09-26] MEDS: INSULIN LISPRO 1 UNIT/0.01 ML (HUMALOG) DOSE SC SCH ×7 (06:15→21:00)
[2016-09-26] MEDS: CLINDAMYCIN INJ 600 MG in SODIUM CHLORIDE 50 ML IV SCH (06:15)
[2016-09-26 08:23] VITALS: BP 163/97
[2016-09-26] MEDS: RIVAROXABAN 10 MG (XARELTO) TABLET PO SCH (08:53)
[2016-09-26] MEDS: FINASTERIDE (PROSCAR) 5 MG TAB PO SCH (08:53)
[2016-09-26] MEDS: DOCUSATE SODIUM 100 MG (COLACE) CAP PO SCH ×2 (08:53→20:10)
[2016-09-26] MEDS: THIAMINE 100 MG (VITAMIN B-1) TAB PO SCH (08:53)
[2016-09-26] MEDS: lisINopril 20 MG (PRINIVIL) TABLET PO SCH (08:54)
[2016-09-26] MEDS: POTASSIUM CHLORIDE ER 10 MEQ CAPSULE PO SCH (08:54)
[2016-09-26] MEDS: MULTIVITAMIN W/MINERALS (THERAGRAN M) TABLET PO SCH (08:54)
[2016-09-26] MEDS: POLYETHYLENE GLYCOL 17 GM (MIRALAX) PACKET PO SCH (08:55)
[2016-09-26] MEDS: PHENYTOIN ER 100 MG (DILANTIN) CAPSULE PO SCH ×2 (09:00→20:10)
[2016-09-26] MEDS: SODIUM CHLORIDE FLUSH 3 ML SYR IV SCH (09:00)
[2016-09-26] MEDS: ALBUTEROL/IPRATROPIUM 3MG-0.5MG/3ML (DUONEB) NEB VIAL INH SCH ×2 (09:02→20:32)
--- NOTE | 2016-09-26 09:11 | NUR ---
SpO2 96-97% on Room Air. BS clear, decreased bilat.
[2016-09-26] MEDS: TAMSULOSIN 0.4 MG (FLOMAX) CAP PO SCH (12:42)
[2016-09-26 12:46] VITALS: BP 143/89
[2016-09-26] MEDS: LEVOFLOXACIN 750 MG TAB (LEVAQUIN) PO SCH (16:00)
[2016-09-26 17:08] VITALS: BP 121/78
[2016-09-26 19:46] VITALS: BP 130/70
--- NOTE | 2016-09-26 19:50 | NUR ---
Pt is resting in bed on right side, alert and confused at this time. Resp are even and nonlabored, LCTAB, HRRR, BS are active x 4 quadrants, Patton to DD of clear, yellow, urine at this time. Pt is on telemetry, running sinus rhythm at this time, continues to pull leads off, this RN continues to replace leads for accurate reading. Does not appear in pain or discomfort at this time. Does have stage 2 pressure ulcer to coccyx approximately 2.5cmx1.5cm per Brian RN. SL is patent, no redness, swelling, or s/s of infection noted at this time. Call light in reach, bed alarm on, will continue to monitor.
[2016-09-26] MEDS: SIMvastatin 40 MG (ZOCOR) TAB PO SCH (20:11)
[2016-09-26] MEDS: ATENOLOL 50 MG (TENORMIN) TAB PO SCH (20:11)
--- NOTE | 2016-09-26 20:18 | NUR ---
Pt refused PO medications at this time.
--- NOTE | 2016-09-26 20:34 | NUR ---
Pt found lying in bed on RA, SPO2 94%, HR 81, RR 14 and non labored with a loose NPC. BS have fine wheezes in bilateral upper lobes before Tx od Duoneb via SVN/MASK, clear BS after Tx.
[2016-09-26] MEDS: INSULIN DETEMIR 1 UNIT/0.01 ML (LEVEMIR) DOSE SC SCH (21:00)
--- NOTE | 2016-09-26 23:31 | NUR ---
Received order from Dr. Pastor to discontinue telemetry. Notified Shea NGUYEN in ICU of new order.
[2016-09-27 00:09] VITALS: BP 111/66
--- NOTE | 2016-09-27 05:40 | NUR ---
Pt is sitting up in bed awake, continues to be confused, resp are even and nonlabored, denies pain or needs at this time. Call light is in reach, bed alarm is on, will continue to monitor.
[2016-09-27] MEDS: PANTOPRAZOLE 40 MG (PROTONIX) TAB PO SCH (06:11)
[2016-09-27 07:49] VITALS: BP 151/89
[2016-09-27] MEDS: INSULIN LISPRO 1 UNIT/0.01 ML (HUMALOG) DOSE SC SCH ×7 (08:00→21:36)
[2016-09-27] MEDS: POLYETHYLENE GLYCOL 17 GM (MIRALAX) PACKET PO SCH (09:00)
[2016-09-27] MEDS: RIVAROXABAN 10 MG (XARELTO) TABLET PO SCH (09:14)
[2016-09-27] MEDS: MULTIVITAMIN W/MINERALS (THERAGRAN M) TABLET PO SCH (09:14)
[2016-09-27] MEDS: THIAMINE 100 MG (VITAMIN B-1) TAB PO SCH (09:14)
[2016-09-27] MEDS: FINASTERIDE (PROSCAR) 5 MG TAB PO SCH (09:14)
[2016-09-27] MEDS: TAMSULOSIN 0.4 MG (FLOMAX) CAP PO SCH (09:14)
[2016-09-27] MEDS: lisINopril 20 MG (PRINIVIL) TABLET PO SCH (09:14)
[2016-09-27] MEDS: DOCUSATE SODIUM 100 MG (COLACE) CAP PO SCH ×2 (09:14→20:13)
[2016-09-27] MEDS: POTASSIUM CHLORIDE ER 10 MEQ CAPSULE PO SCH (09:15)
[2016-09-27] MEDS: PHENYTOIN ER 100 MG (DILANTIN) CAPSULE PO SCH ×2 (09:15→20:13)
[2016-09-27] MEDS: SODIUM CHLORIDE FLUSH 3 ML SYR IV SCH (09:16)
--- NOTE | 2016-09-27 09:57 | NUR ---
Pt to shower
[2016-09-27] MEDS: ALBUTEROL/IPRATROPIUM 3MG-0.5MG/3ML (DUONEB) NEB VIAL INH SCH ×2 (10:11→20:13)
--- NOTE | 2016-09-27 11:35 | NUR ---
Pt back from shower Dr. Pastor at bedside. Pt rolls to Rt side indep to assess Stage [address] Pastor examined, then a new Mepilex placed.
[2016-09-27 15:23] VITALS: BP 123/69
--- NOTE | 2016-09-27 15:46 | NUR ---
Pt back to bed- sleeping without s/s distress. Was up to chair for lunch meal. Feeds self, only ate peaches and applesauce. IV SL intact to LFA. Call light within reach.
--- NOTE | 2016-09-27 15:54 | NUR ---
Pt. on room air, 95%. BS are clear, no cough. Pt. had eyes closed and nonverbal throughout tx..
--- NOTE | 2016-09-27 17:25 | NUR ---
Patton catheter dc'd at this time as ordered by Dr. Pastor. Pt tolerated without c/o.
--- NOTE | 2016-09-27 18:16 | NUR ---
Pt sitting in semi fowlers position- eating supper meal. Pt points to thickened liquids on his tray and states "Junk... junk..." Will encourage patient to drink PO fluids.
[2016-09-27] MEDS: SIMvastatin 40 MG (ZOCOR) TAB PO SCH (20:14)
[2016-09-27] MEDS: ATENOLOL 50 MG (TENORMIN) TAB PO SCH (20:14)
--- NOTE | 2016-09-27 20:15 | NUR ---
Pt found lying in bed on RA, SPO2 95%, HR 92, RR 16 and non labored with clear BS before and after Duoneb via SVN/MASK. Pt has a loose NPC.
[2016-09-27] MEDS: INSULIN DETEMIR 1 UNIT/0.01 ML (LEVEMIR) DOSE SC SCH (21:36)
[2016-09-28 00:17] VITALS: BP 127/70
--- NOTE | 2016-09-28 04:19 | NUR ---
1930-Pt is resting in bed asleep, does not appear in discomfort at this time. Call light in reach, bed alarm on, will continue to monitor. 2014-Pt refused all PO medications at this time. 2249-Pt urinated 850cc of clear yellow urine. 2329-Bladder scan showed 150ml in bladder. 424-Pt has been awake most of the night, continues to pull brief and gown off, keeps throwing urinal on ground, and turning call light on, but not needing anything. Pt has been offered urinal several times but only voided once. Call light is in reach, bed alarm is on, will continue to monitor frequently.
[2016-09-28] MEDS: PANTOPRAZOLE 40 MG (PROTONIX) TAB PO SCH (06:21)
[2016-09-28] MEDS ORDERED: HALOPERIDOL 5 MG/ML (HALDOL) 1 ML AMP IM PRN (06:50)
[2016-09-28] MEDS: INSULIN LISPRO 1 UNIT/0.01 ML (HUMALOG) DOSE SC SCH ×9 (07:03→20:48)
[2016-09-28 07:37] VITALS: BP 151/78
[2016-09-28] MEDS: DOCUSATE SODIUM 100 MG (COLACE) CAP PO SCH ×3 (08:25→20:07)
[2016-09-28] MEDS: POTASSIUM CHLORIDE ER 10 MEQ CAPSULE PO SCH ×2 (08:25→12:24)
[2016-09-28] MEDS: RIVAROXABAN 10 MG (XARELTO) TABLET PO SCH ×2 (08:25→12:26)
[2016-09-28] MEDS: PHENYTOIN ER 100 MG (DILANTIN) CAPSULE PO SCH ×2 (08:25→20:08)
[2016-09-28] MEDS: FINASTERIDE (PROSCAR) 5 MG TAB PO SCH ×2 (08:25→12:25)
[2016-09-28] MEDS: THIAMINE 100 MG (VITAMIN B-1) TAB PO SCH ×2 (08:26→12:25)
[2016-09-28] MEDS: lisINopril 20 MG (PRINIVIL) TABLET PO SCH ×2 (08:26→12:26)
[2016-09-28] MEDS: MULTIVITAMIN W/MINERALS (THERAGRAN M) TABLET PO SCH ×2 (08:26→12:24)
[2016-09-28] MEDS: SODIUM CHLORIDE FLUSH 3 ML SYR IV SCH (08:28)
[2016-09-28] MEDS: TAMSULOSIN 0.4 MG (FLOMAX) CAP PO SCH (08:29)
[2016-09-28] MEDS: POLYETHYLENE GLYCOL 17 GM (MIRALAX) PACKET PO SCH (08:36)
--- NOTE | 2016-09-28 09:38 | NUR ---
Pt refusing to take AM medications. 2 RN's tried multiple times as well as Brian RN from ICU- he was able to give meds yesterday. Dr. Pastor aware and will attempt to get pt to agree to take AM meds. Has had 1 incont void this AM. As well as an incont BM. Pt up to chair for bfst- repositioned and remains in chair with BLE elevated- watching tv. IV SL intact. Tabs alarm intact. Call light within reach. Resp even nonlab. Remains on RA. Skin warm, dry.
[2016-09-28] MEDS: ALBUTEROL/IPRATROPIUM 3MG-0.5MG/3ML (DUONEB) NEB VIAL INH SCH ×2 (10:38→19:37)
--- NOTE | 2016-09-28 12:24 | NUR ---
Dr. Pastor was able to get patient to take Dilantin and Flomax medications.
--- NOTE | 2016-09-28 13:30 | NUR ---
Pt transferred back to bed using 2 assist. Pt has not voided more than 20ml this shift- bladder scan reads >850ml. Lower abd firm with a small protrusion to Rt groin- Dr. Pastor notified- Dr. Pastor assessed and gave VORB to place alonso cath. He is looking into imaging for a possible Rt inguinal hernia
--- NOTE | 2016-09-28 13:45 | NUR ---
16F alonso cath placed as ordered by Dr. Pastor. 10ml salina in balloon. Securement device in place. Pt tolerated without difficulty or c/o. Sample sent to lab per protocol for alonso insertion. Immediately approx 600ml yellow cloudy urine into collection bag, then approx 200ml white, purulent drainage noted following the yellow cloudy- 850ml total out. Dr. Pastor notified- Wanted UA sent to lab.
[2016-09-28 13:59] LABS: BILIRUBIN,URINE Negative (Negative); CLARITY,URINE Cloudy; COLOR,URINE Yellow; GLUCOSE, URINE (UA) Negative (Negative); LEUKOCYTE ESTERASE ,URINE 1+ (Negative); PH,URINE 8.5 (5.0 - 8.0); UROBILINOGEN,URINE 0.2 mg/dL (0.2-1.0)
[2016-09-28 14:34] LABS: RBC,URINE 20-50 /HPF; URINE CENTRIFUGED VOLUME 12 mL
[2016-09-28 14:35] LABS: AMORPHOUS SEDIMENT,UR 1+ /HPF
[2016-09-28 15:17] VITALS: BP 112/54
--- NOTE | 2016-09-28 17:50 | NUR ---
Pt sleeping since alonso placed- VSS. Held Humalog as pt is not awake to eat supper meal.
[2016-09-28] MEDS: SIMvastatin 40 MG (ZOCOR) TAB PO SCH (20:08)
[2016-09-28] MEDS: ATENOLOL 50 MG (TENORMIN) TAB PO SCH (20:08)
[2016-09-28] MEDS: INSULIN DETEMIR 1 UNIT/0.01 ML (LEVEMIR) DOSE SC SCH (20:49)
[2016-09-28] MEDS: CEFEPIME 1,000 MG in SODIUM CHLORIDE 100 ML IV SCH (20:50)
[2016-09-28 23:45] VITALS: BP 134/74
--- NOTE | 2016-09-29 04:22 | NUR ---
Pt has been resting in bed asleep, resp are even and nonlabored, alonso to DD of cloudy, cherelle urine. Pt tolerated IV abx without any s/s of reaction. Does not appear to be in pain or discomfort. Call light in reach, bed alarm on, will continue to monitor.
[2016-09-29] MEDS ORDERED: SODIUM CHLORIDE 250 ML ONE (05:38)
[2016-09-29] MEDS: PANTOPRAZOLE 40 MG (PROTONIX) TAB PO SCH (06:16)
[2016-09-29] MEDS: CEFEPIME 1,000 MG in SODIUM CHLORIDE 100 ML IV SCH (06:16)
[2016-09-29 06:42] LABS: BASOPHILS % (AUTO) 0 % (0-2); EOSINOPHILS # (AUTO) 0.1 10^3uL; EOSINOPHILS % (AUTO) 1 % (0-4); LYMPHOCYTES # (AUTO) 1.4 X10^3; MEAN CORPUSCULAR HGB CONC 33.9 g/dL (31.0-37.0); MEAN CORPUSCULAR VOLUME 94 FL (80-100); MEAN PLATELET VOLUME 10.8 FL (6.0-9.5); MONOCYTES # (AUTO) 0.9 X10^3; MONOCYTES % (AUTO) 8 % (3-11); NEUTROPHILS # (AUTO) 8.6 X10^3; NEUTROPHILS % (AUTO) 78 % (51-67); PLATELET COUNT 277 10^3uL (150-450)
[2016-09-29] MEDS: INSULIN LISPRO 1 UNIT/0.01 ML (HUMALOG) DOSE SC SCH ×7 (06:53→21:00)
[2016-09-29 06:58] LABS: ANION GAP 11.9 MEQ/L (3-15); MEAN CORPUSCULAR HEMOGLOBIN 31.9 PG (26.0-34.0)
--- NOTE | 2016-09-29 07:39 | NUR ---
Patient awake in bed upon shift assessment. Alert and oriented to self only. Denies pain, SOA, nausea, or other distress. Respirations even and non-labored on roomair. HR RRR. Trace edema noted to BLE. Patton catheter intact and draining yellow urine with moderate sediment. Reoriented patient to place, situation, and plan of care. Yellow gown and TABS intact for safety. Will continue to monitor.
[2016-09-29 07:42] VITALS: BP 140/71
[2016-09-29] MEDS: POTASSIUM CHLORIDE ER 10 MEQ CAPSULE PO SCH (08:50)
[2016-09-29] MEDS: POLYETHYLENE GLYCOL 17 GM (MIRALAX) PACKET PO SCH ×2 (08:50→08:54)
[2016-09-29] MEDS: MULTIVITAMIN W/MINERALS (THERAGRAN M) TABLET PO SCH (08:50)
[2016-09-29] MEDS: DOCUSATE SODIUM 100 MG (COLACE) CAP PO SCH ×2 (08:50→21:43)
[2016-09-29] MEDS: lisINopril 20 MG (PRINIVIL) TABLET PO SCH (08:50)
[2016-09-29] MEDS: RIVAROXABAN 10 MG (XARELTO) TABLET PO SCH (08:50)
[2016-09-29] MEDS: PHENYTOIN ER 100 MG (DILANTIN) CAPSULE PO SCH ×2 (08:50→21:44)
[2016-09-29] MEDS: FINASTERIDE (PROSCAR) 5 MG TAB PO SCH (08:50)
[2016-09-29] MEDS: SODIUM CHLORIDE FLUSH 3 ML SYR IV SCH (08:50)
[2016-09-29] MEDS: THIAMINE 100 MG (VITAMIN B-1) TAB PO SCH (08:50)
[2016-09-29] MEDS: TAMSULOSIN 0.4 MG (FLOMAX) CAP PO SCH (10:00)
--- NOTE | 2016-09-29 12:14 | NUR ---
MULTIDISCIPLINARY MTG/DR. KUMARI: Pt. seems to be at baseline. Pt. will be changed to cipro today for his UTI. Pt. has a kidney mass. He will need to follow up with Urology after discharge to address his UTI and kidney mass. Pt. will be discharged with alonso in place until he has follow up. Plan for Pt. to discharge tomorrow either to [facility] or [facility]. SW will contacted [facility] to regarding room availability.
[2016-09-29 16:02] VITALS: BP 118/60
--- NOTE | 2016-09-29 16:05 | NUR ---
Pt. refused nebulizer tx. this am.
--- NOTE | 2016-09-29 18:36 | NUR ---
Patient rests in bed throughout day shift. Alert and oriented to person. Denies pain. turned Q2 for pressure ulcer prevention. Patton catheter continues to drain yellow urine with sediment. TABS intact for safety. Call light in reach.
[2016-09-29] MEDS: ALBUTEROL/IPRATROPIUM 3MG-0.5MG/3ML (DUONEB) NEB VIAL INH SCH (19:53)
--- NOTE | 2016-09-29 20:00 | NUR ---
Turned and repositioned in bed. Is alert to self. Verbalizes at times, other times shakes his head. Bed alarm on. Patton drains cherelle urine. Call light within reach. Appears comfortable. Call light within reach.
--- NOTE | 2016-09-29 21:30 | NUR ---
Patient does not take pills well. Spits out meds. Took meds and crushed them and placed them back in chocolate pudding. Assisted patient in taking meds. Takes liquids poorly tonight. Call light within reach.
[2016-09-29] MEDS: ATENOLOL 50 MG (TENORMIN) TAB PO SCH (21:43)
[2016-09-29] MEDS: CIPROFLOXACIN (CIPRO) 500 MG TABLET PO SCH (21:43)
[2016-09-29] MEDS: SIMvastatin 40 MG (ZOCOR) TAB PO SCH (21:44)
[2016-09-29] MEDS: INSULIN DETEMIR 1 UNIT/0.01 ML (LEVEMIR) DOSE SC SCH (21:45)
[2016-09-30 00:24] VITALS: BP 129/66
--- NOTE | 2016-09-30 00:30 | NUR ---
Restless. Repositioned in bed. Patton. drains dark cherelle.
[2016-09-30 06:19] LABS: BASOPHILS % (AUTO) 0 % (0-2); EOSINOPHILS # (AUTO) 0.2 10^3uL; EOSINOPHILS % (AUTO) 2 % (0-4); LYMPHOCYTES # (AUTO) 1.3 X10^3; MEAN CORPUSCULAR HGB CONC 34.4 g/dL (31.0-37.0); MEAN CORPUSCULAR VOLUME 93 FL (80-100); MEAN PLATELET VOLUME 10.3 FL (6.0-9.5); MONOCYTES # (AUTO) 0.7 X10^3; MONOCYTES % (AUTO) 7 % (3-11); NEUTROPHILS # (AUTO) 7.8 X10^3; NEUTROPHILS % (AUTO) 78 % (51-67); PLATELET COUNT 290 10^3uL (150-450); WHITE BLOOD COUNT 10.08 10^3uL (4.0-11.0)
[2016-09-30 06:24] LABS: MEAN CORPUSCULAR HEMOGLOBIN 31.9 PG (26.0-34.0)
--- NOTE | 2016-09-30 06:30 | NUR ---
Patient rested fair. Turns well with assistance. Mepilex placed on open area on coccyx area, that is a stage 2 open area. Cleansed well prior to Mepilex dressing placed on. Bed alarm on.
[2016-09-30] MEDS: PANTOPRAZOLE 40 MG (PROTONIX) TAB PO SCH (06:34)
[2016-09-30] MEDS: INSULIN LISPRO 1 UNIT/0.01 ML (HUMALOG) DOSE SC SCH ×4 (06:35→13:05)
[2016-09-30 06:42] LABS: ALBUMIN 2.8 g/dL (3.4-5.0); ANION GAP 9.7 MEQ/L (3-15); MAGNESIUM* 2.1 mg/dL (1.6-2.3); PHOSPHORUS 3.4 mg/dL (2.4-4.9)
[2016-09-30] MEDS: ALBUTEROL/IPRATROPIUM 3MG-0.5MG/3ML (DUONEB) NEB VIAL INH SCH (07:37)
[2016-09-30 07:40] VITALS: BP 118/69
--- NOTE | 2016-09-30 09:59 | NUR ---
Contacted [facility] regarding room availability for Pt. They do not have any rooms available at this time. BRADEN left a message for Teri at [facility] letting her know Pt. would be discharged back to them likely today. BRADEN will keep Teri informed about Pt. discharge.
[2016-09-30] MEDS: TAMSULOSIN 0.4 MG (FLOMAX) CAP PO SCH (10:00)
[2016-09-30] MEDS: PHENYTOIN ER 100 MG (DILANTIN) CAPSULE PO SCH (10:07)
[2016-09-30] MEDS: DOCUSATE SODIUM 100 MG (COLACE) CAP PO SCH (10:14)
[2016-09-30] MEDS: MULTIVITAMIN W/MINERALS (THERAGRAN M) TABLET PO SCH (10:14)
[2016-09-30] MEDS: FINASTERIDE (PROSCAR) 5 MG TAB PO SCH (10:15)
[2016-09-30] MEDS: CIPROFLOXACIN (CIPRO) 500 MG TABLET PO SCH (10:15)
[2016-09-30] MEDS: lisINopril 20 MG (PRINIVIL) TABLET PO SCH (10:16)
[2016-09-30] MEDS: THIAMINE 100 MG (VITAMIN B-1) TAB PO SCH (10:16)
[2016-09-30] MEDS: RIVAROXABAN 10 MG (XARELTO) TABLET PO SCH (10:16)
[2016-09-30] MEDS: SODIUM CHLORIDE FLUSH 3 ML SYR IV SCH (10:17)
[2016-09-30] MEDS: POTASSIUM CHLORIDE ER 10 MEQ CAPSULE PO SCH (10:17)
--- NOTE | 2016-09-30 11:00 | NUR ---
Patient refused most morning meds. but he did take his antibiotic and seizure medication whole with applesauce.
[2016-09-30] MEDS: POLYETHYLENE GLYCOL 17 GM (MIRALAX) PACKET PO SCH (13:05)
--- NOTE | 2016-09-30 14:20 | NUR ---
Patient dismissed per wheelchair accompanied by [facility] nursing staff.
--- NOTE | 2016-09-30 18:00 | NUR ---
Called report to Leida at [facility].
== END 2016-09-30 14:20 | DRG 871 ==
LOC: EDUNIT# 07:34 → ED 07:38 → MED/SURG 14:20 → ICU 09-21 21:32 → MED/SURG 09-23 09:35
PROVIDERS: ADMIT Family Medicine; ATTEND Family Medicine
DX: A41.9 Sepsis, unspecified organism (principal); J96.01 Acute respiratory failure with hypoxia; J69.0 Pneumonitis due to inhalation of food and vomit; I69.354 Hemiplegia and hemiparesis following cerebral infarction affecting left non-dominant side; J44.0 Chronic obstructive pulmonary disease with (acute) lower respiratory infection; N17.9 Acute kidney failure, unspecified; N39.0 Urinary tract infection, site not specified; I47.2 Ventricular tachycardia; I47.1 Supraventricular tachycardia; J44.1 Chronic obstructive pulmonary disease with (acute) exacerbation; Z66 Do not resuscitate; E87.5 Hyperkalemia; K52.9 Noninfective gastroenteritis and colitis, unspecified; I12.9 Hypertensive chronic kidney disease with stage 1 through stage 4 chronic kidney disease, or unspecified chronic kidney disease; N18.9 Chronic kidney disease, unspecified; G40.909 Epilepsy, unspecified, not intractable, without status epilepticus; E11.649 Type 2 diabetes mellitus with hypoglycemia without coma; Z86.718 Personal history of other venous thrombosis and embolism
CPT/HCPCS: 36415; 51702; 70450; 71250; 72125; 74022; 74170; 74176; 76881; 80048; 80053; 80069; 81003; 81015; 82550; 82553; 83605; 83690; 83735; 83880; 84100; 84146; 84439; 84443; 84484; 85025; 85610; 85730; 86140; 87040; 87077; 87088; 87186; 87486; 87581; 87633; 87798; 92523; 93005; 93010; 93306; 94640; 94669; 94760; 96365; 96367; 96375; 99285; 99291

== ENCOUNTER 2016-09-30 22:53 | Emergency (ER) | payer MEDICAID ==
[~2016-09-30] VITALS: Ht 170.2 cm; Wt 63.5 kg
[2016-10-01 00:18] VITALS: BP 150/76
--- NOTE | 2016-10-01 00:20 | NUR ---
Report called and given to Becca Winslow RN.
[2016-10-01 00:50] LABS: BILIRUBIN,URINE Negative (Negative); CLARITY,URINE Clear; COLOR,URINE Yellow; GLUCOSE, URINE (UA) Negative (Negative); LEUKOCYTE ESTERASE ,URINE Negative (Negative); PH,URINE 5.5 (5.0 - 8.0); UROBILINOGEN,URINE 0.2 mg/dL (0.2-1.0)
[2016-10-01 00:58] LABS: RBC,URINE 20-50 /HPF; URINE CENTRIFUGED VOLUME 12 mL
== END 2016-10-01 00:20 | disposition home or self-care (01) ==
LOC: ED 22:54
DX: T83.028A Displacement of other urinary catheter, initial encounter (principal); R33.8 Other retention of urine; X58.XXXA Exposure to other specified factors, initial encounter
CPT/HCPCS: 51702; 81003; 81015; 99282

== ENCOUNTER → 2016-10-07 | Outpatient (REF) | payer MEDICAID ==
[2016-10-07 11:49] LABS: ALBUMIN 3.1 g/dL (3.4-5.0); ANION GAP 12.1 MEQ/L (3-15); TOTAL PROTEIN 6.3 g/dL (6.4-8.5)
[2016-10-07 12:44] LABS: BASOPHILS % (AUTO) 0 % (0-2); EOSINOPHILS # (AUTO) 0.1 10^3uL; EOSINOPHILS % (AUTO) 1 % (0-4); LYMPHOCYTES # (AUTO) 1.4 X10^3; MEAN CORPUSCULAR HGB CONC 33.8 g/dL (31.0-37.0); MEAN CORPUSCULAR VOLUME 95 FL (80-100); MEAN PLATELET VOLUME 10.4 FL (6.0-9.5); MONOCYTES # (AUTO) 0.7 X10^3; MONOCYTES % (AUTO) 8 % (3-11); NEUTROPHILS # (AUTO) 7.3 X10^3; NEUTROPHILS % (AUTO) 77 % (51-67); PLATELET COUNT 297 10^3uL (150-450); WHITE BLOOD COUNT 9.54 10^3uL (4.0-11.0)
== END ==
LOC: LAB 11:35
PROVIDERS: ATTEND Physician Assistant Surgical
DX: A41.89 Other specified sepsis (principal)
CPT/HCPCS: 80053; 85025

== ENCOUNTER 2016-11-05 23:49 | Emergency (ER) | payer MEDICAID ==
[~2016-11-05] VITALS: Ht 172.7 cm; Wt 59.9 kg
--- NOTE | 2016-11-05 23:55 | NUR ---
[address] upon arrival. No urine output noted in catheter drainage bag. Pt c/o pressure to lower abdomen. Catheter removed without difficulty. Small amount of blood noted around catheter and penis.
[2016-11-06 00:30] LABS: BILIRUBIN,URINE Negative (Negative); CLARITY,URINE Cloudy; GLUCOSE, URINE (UA) 3+ (Negative); LEUKOCYTE ESTERASE ,URINE 1+ (Negative); UROBILINOGEN,URINE 0.2 mg/dL (0.2-1.0)
[2016-11-06 00:31] LABS: COLOR,URINE Light Yellow
[2016-11-06 00:34] LABS: URINE CENTRIFUGED VOLUME 12 mL
[2016-11-06 00:46] VITALS: BP 135/78
== END 2016-11-06 00:20 | disposition home or self-care (01) ==
LOC: EDUNIT# 23:49 → ED 23:51
DX: T83.098A Other mechanical complication of other urinary catheter, initial encounter (principal); R10.30 Lower abdominal pain, unspecified
CPT/HCPCS: 51702; 81003; 81015; 87077; 87088; 87186; 99282

== ENCOUNTER → 2017-01-19 | Outpatient (CLI) | payer MEDICAID ==
[~2017-01-19] MED LIST: AC500T PO; ALBU8.5H2 IH; ATN50T PO; CLPL625T PO; CPR500T PO; FNST5T PO; INSU100I14 SC; INSU100I29 SQ; MAGN800O PO; MULT-26 PO; NF-LISIN40 PO; NITR100C3 PO; OMEP20TA PO; PHEN100C11 PO; POTA10CA2 PO; RIVA20TA PO; SIMV40TA2 PO; TAMS0.4C2 PO; THIA100T12 PO; TRAZ-28 PO; [UNRECOGNIZED DRUG - CODE] PO
--- NOTE | 2017-01-19 12:27 | Diagnostic Imaging Report ---
INDICATION: Acute left knee pain. FINDINGS: 2 views. Good alignment of the articulating surfaces. Joint spaces well preserved on 9 weightbearing images. Articulating surfaces are smooth. No cortical fractures are demonstrated. The patellofemoral joints in good alignment with good preservation of joint space. Articulating surfaces are smooth. There is dense vascular calcification of the femoral and popliteal artery. IMPRESSION: Mild diffuse degenerative disease with dense vascular calcification. No acute abnormalities demonstrated. Dictated by: Dictated on workstation # [id number]
--- NOTE | 2017-01-19 13:45 | Diagnostic Imaging Report ---
INDICATION: Aspiration pneumonia. COMPARISON: Comparison is made with the previous CT chest of 09/28/2016. FINDINGS: There has been development of consolidated infiltrate in the left posterior basilar lung. This is obscuring the costophrenic angle. There is elevation of the left hemidiaphragm consistent with some associated atelectasis of the left lung base as well. The left upper lung is well-aerated and clear. The right lung is well aerated and clear. The heart is not enlarged. No evidence of pulmonary edema. No hilar adenopathy. No pneumothorax. IMPRESSION: 1. Findings are consistent with development of atelectasis as well as consolidated infiltrate in the left lower lobe since previous exam. 2. Right lung remains clear. Dictated by: Dictated on workstation # [id number]
== END ==
LOC: RAD 10:30
PROVIDERS: ATTEND Family Medicine
DX: J69.0 Pneumonitis due to inhalation of food and vomit (principal); M25.562 Pain in left knee; J98.11 Atelectasis
CPT/HCPCS: 71020; 73560

== ENCOUNTER → 2017-01-29 | Outpatient (CLI) | payer MEDICAID ==
--- NOTE | 2017-01-29 17:14 | Diagnostic Imaging Report ---
PROCEDURE: CT chest without contrast. TECHNIQUE: Multiple contiguous axial images were obtained through the chest without the use of intravenous contrast. INDICATION: Pleural effusion. CORRELATION STUDY: 09/28/2016 FINDINGS: Evaluation of the mediastinal structures limited given lack of intravenous contrast. No definitive pathologically enlarged lymphadenopathy. Heart size enlarged with rather dense areas of coronary artery calcification. Thoracic aortic contour unremarkable with mild calcification of the arch. Trace anterior pericardial effusion. There is low-density masses within both lobes of the thyroid gland measuring less than 1 cm. There is rather prominent severity emphysematous changes about the lung parenchyma. There is consolidation about the left lower lobe. There is asymmetric elevation of the left hemidiaphragm. There is a small left pleural effusion. Overall findings are changed from prior imaging. Right lung relatively clear of infiltrate. Approximately 6 mm nodule in the superior segment of the right lower lobe mixed with vessels appearing generally stable. Visualized portion of the upper abdomen demonstrate a large partially visualized cyst off the superior pole of the left kidney. There is a thin calcification present as well as an apparent septation superiorly. The visualized portions measure up to 6.7 cm. Gallstone is present. Small hiatal hernia. IMPRESSION: 1. Development of consolidation in the left lung base with volume loss and small left pleural effusion and elevated left diaphragm. Etiology of this is somewhat indeterminate. 2. Emphysematous change of the lung parenchyma. A small nodule of the superior segment of the right lower lobe generally stable. 3. Relative stable appearance of a peripherally calcified left renal cyst. Cholelithiasis. Dictated by: Dictated on workstation # [id number]
== END ==
LOC: RAD 14:23
PROVIDERS: ATTEND Family Medicine
DX: J90 Pleural effusion, not elsewhere classified (principal); R91.1 Solitary pulmonary nodule; K80.20 Calculus of gallbladder without cholecystitis without obstruction
CPT/HCPCS: 71250